=== PATIENT | male | born 1985 | race Caucasian/White ===

== ENCOUNTER 2017-02-05 21:10 | Emergency (ER) | payer OTHER ==
[~2017-02-05] VITALS: Ht 180.3 cm; Wt 69.0 kg
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
[~2017-02-05 21:10] MED LIST: AMOXICILLIN PO; AMOXICILLIN500 M1 PO; ERYTHROMYCIN O3.5 G1 OD; FIORICET 50-321 EACH PO; MAGIC MOUTHWASH PO; NO MEDICATIONS; NORCO 5/325 TAB1 TAB PO; PHENERGAN25 M1 PO; PREDNISONE PO; ULTRAM PO; VEETIDS 500500 M1 PO; VICODIN 5/1 TAB 5/50 PO; VICODIN 5/500 T1 TAB PO; VOLTAREN75 MG PO; ZITHROMAX1 G/PKT PO
== END 2017-02-05 22:39 | disposition home or self-care (01) ==
LOC: SED 21:10
DX: S16.1XXA Strain of muscle, fascia and tendon at neck level, initial encounter (principal); F17.210 Nicotine dependence, cigarettes, uncomplicated; V49.60XA Unspecified car occupant injured in collision with unspecified motor vehicles in traffic accident, initial encounter
CPT/HCPCS: 72040; 99283